=== PATIENT | female | born 1955 | race Caucasian/White ===

== ENCOUNTER 2024-06-02 15:21 | Outpatient (CLI) | payer BC | END 2024-06-02 15:22 | disposition home or self-care (01) | LOC: CSHMAMMO 15:21 | PROVIDERS: ATTEND Family Medicine | DX: N95.1 Menopausal and female climacteric states (principal); M85.851 Other specified disorders of bone density and structure, right thigh; M85.852 Other specified disorders of bone density and structure, left thigh | CPT/HCPCS: 77080 ==